=== PATIENT | female | born 1995 | race Caucasian/White ===

== ENCOUNTER 2017-02-09 21:26 | Emergency (ER) | payer OTHER ==
[~2017-02-09] VITALS: Ht 165.1 cm; Wt 83.1 kg
[2017-02-09 22:15] LABS: CHLORIDE 105 mEq/L (99-109); EOSINOPHIL (%) 0.7 % (0-5); EOSINOPHIL COUNT 0.1 K/uL (0-0.3); HEMATOCRIT 39.3 % (36.0-46.0); IMMATURE GRANULOCYTE (%) 0.2 % (0.0-0.7); INSTRUMENT ABS NEUTROPHIL CT 9.1 K/uL; LYMPHOCYTE COUNT 0.8 K/uL (1.0-2.8); MCH 31.1 PG (29.0-34.0); MCHC 33.8 G/DL (30.0-36.0); MEAN PLAT.VOLUME 10.8 uM^3 (9.5-12.4); MONOCYTE (%) 5.7 % (3-12); MONOCYTE COUNT 0.6 K/uL (0-0.8); NEUTROPHIL (%) 86.1 % (45-76); NEUTROPHIL COUNT 9.1 K/uL (1.8-6.4); PLATELET COUNT 251 K/uL (156-360); POTASSIUM 3.8 mEq/L (3.7-5.4); RBC DIS.WIDTH-CV 12.1 % (11.8-14.6); RBC DIS.WIDTH-SD 40.3 % (39-53); RED BLOOD COUNT 4.27 M/uL (3.80-5.20); SODIUM 136 mEq/L (136-147); WHITE BLOOD COUNT 10.6 K/uL (4.1-10.2)
[2017-02-09 22:17] LABS: GLUCOSE 98 mg/dL (70-99)
[2017-02-09 22:18] LABS: ANION GAP 12 MEQ/L (2-14)
[2017-02-09 22:19] LABS: TOTAL BILIRUBIN 0.5 mg/dL (0.0-1.0)
[2017-02-09 22:20] LABS: ALKALINE PHOSPHATASE 82 IU/L (3-129)
[2017-02-09 22:21] LABS: GFR ESTIMATE (CALCULATED) > 59 mL/min/
[2017-02-09 22:22] LABS: UREA NITROGEN (BUN) 13 mg/dL (9-23)
[2017-02-09 22:24] LABS: LIPASE 22 U/L (1.0-51.0)
[2017-02-09 22:33] LABS: QUANTITATIVE HCG < 4.0 MIU/ML
[2017-02-09 23:47] LABS: ADD MIUA? YES; BILIRUBIN NEGATIVE; BLOOD NEGATIVE; COLOR YELLOW ((YELLOW)); GLUCOSE (STRIP) NEGATIVE; KETONES 80; LEUKOCYTES SMALL; NITRITE NEGATIVE; PROTEIN (STRIP) 30; SPECIFIC GRAVITY 1.033 (1.000-1.030)
[2017-02-09 23:55] LABS: BACTERIA RARE /HPF; EPITHELIAL CELLS 1+ /HPF; MUCUS 2+ /LPF; RED BLOOD CELLS 0-5 /HPF (0-5); WHITE BLOOD CELLS 0-5 /HPF (0-5)
[2017-02-10] MEDS ORDERED: ZOFRAN ODT4 MG PO (00:47)
[2017-02-10] MEDS ORDERED: BENTYL20 MG PO (00:47)
[2017-02-10 01:06] VITALS: BP 113/64
== END 2017-02-10 01:08 | disposition home or self-care (01) ==
LOC: EME 21:26
PROVIDERS: Physician Assistant
DX: R11.0 Nausea (principal); R10.9 Unspecified abdominal pain; I88.0 Nonspecific mesenteric lymphadenitis; E86.0 Dehydration
CPT/HCPCS: 74177; 80053; 81003; 83690; 84702; 85025; 99281; 99285; J1885; J2405; J3010; J7030